=== PATIENT | female | born 1940 | race Caucasian/White ===

== ENCOUNTER → 2023-10-11 | Emergency (ER) | payer OTHER ==
[~2023-10-11] MED LIST: ACETAMINOPHEN 500 MG TAB ONE; NA CHLORIDE 0.9% 500 ML ONE
[2023-10-11 13:21] LABS: Absolute Lymphocytes (CBC) 0.2 K/uL (0.7-4.9); Hematocrit 41.9 % (36.0-45.0); Lymphocytes % 2.3 % (15.3-44.8); MCV 94.1 fL (80-100); MPV 7.5 fL (7.6-11.3); Platelets 289 thou/uL (152-406); RBC Red Blood Cell Count 4.45 M/uL (3.86-4.86)
[2023-10-11 13:37] LABS: Albumin 3.5 g/dL (3.4-5.0); Bilirubin Direct 0.1 mg/dL (0-0.2); Bilirubin Indirect, Calculated 0.3 mg/dL (0.2-0.8); Bilirubin Total 0.4 mg/dL (0.2-1.0); Magnesium 2.2 mg/dL (1.6-2.4); Potassium 3.7 mEq/L (3.5-5.1); Protein, Total 7.5 g/dL (6.4-8.2); Troponin High Sensitivity 5.9 pg/mL (<58.9)
[2023-10-11 13:38] LABS: Platelet Estimate ADEQ; White Blood Cell Scan OK (OK)
[2023-10-11 13:39] LABS: Blood Morphology Comment NOT SEEN (NOT SEEN)
[2023-10-11 13:59] LABS: SARS-COV-2 RT PCR NEGATIVE (NEGATIVE)
--- NOTE | 2023-10-11 14:24 | RAD REPORT ---
EXAM DESCRIPTION: Justot Single View10/11/2023 2:00 pm CLINICAL HISTORY: CONGESTION COMPARISON: CHEST PA AND LAT 2 VIEW dated 08/19/2012 TECHNIQUE: Portable AP view of the chest. FINDINGS: The lungs are clear. No pneumothorax or effusion. The cardiomediastinal contours are unre markable. IMPRESSION: No acute cardiopulmonary process.
[2023-10-11 16:08] LABS: Specific Gravity 1.025 (1.005-1.030); Urine Bacteria None Seen /HPF (<20); Urine Bilirubin NEGATIVE (Negative); Urine Blood Negative (Negative); Urine Clarity Clear (Clear); Urine Color Yellow (Yellow); Urine Glucose NEGATIVE (Negative); Urine Mucus 3+ /HPF (None Seen); Urine Protein TRACE (Negative); Urine RBC <5 /HPF (None Seen); Urine Urobilinogen Normal (Normal); Urine pH 5.5 (5.0-7.0)
--- NOTE | 2023-10-11 16:35 | EDPHYS ---
Physician Documentation [facility] Name: Ruthann Cat Age: 82 yrs Sex: Female : 1940 Arrival Date: 10/11/2023 Time: 12:31 Bed 5 Private MD: ED Physician Nathan Lott HPI: 10/11 12:39 This 82 yrs old Female presents to ER via EMS with complaints of weakness. sb4 13:01 Patient with history of Alzheimer's presents via EMS with with concerns of sb4 weakness. states that when she woke up this morning, she was coughing up more phlegm than usual and was too weak to get out of bed. States that the last time she acted like this, she had the flu. Historical: - Allergies: 12:35 PENICILLINS; ld1 - Home Meds: 13:14 levothyroxine 75 mcg oral tablet once [Active]; amlodipine 5 mg tablet once [Active]; aa5 memantine 10 mg oral tablet 2 times per day [Active]; donepezil 10 mg oral tablet once [Active]; pravastatin 40 mg oral tablet daily [Active]; - PMHx: 12:35 Alzheimer's disease; Sleep apnea; Dementia; ld1 - Immunization history:: Adult Immunizations up to date. - Social history:: Smoking status: Patient denies any tobacco usage or history of. ROS: 13:01 Unable to obtain ROS due to baseline dementia, sb4 Exam: 13:01 Head/Face: Normocephalic, atraumatic. Eyes: Extra-ocular motions intact. Periorbital sb4 areas with no swelling, redness, or edema. ENT: Mucous membranes moist. Cardiovascular: Regular rate and rhythm with a normal S1 and S2. Respiratory: Lungs have equal breath sounds bilaterally, clear to auscultation and percussion. No rales, rhonchi or wheezes noted. No increased work of breathing, no retractions or nasal flaring. Abdomen/GI: Soft, non-tender, no distension. Skin: Warm, dry with normal turgor. Normal color with no rashes, no lesions, and no evidence of cellulitis. MS/ Extremity: Pulses equal, no cyanosis. Neurovascular intact. Full, normal range of motion. Neuro: Awake and alert, GCS 15, oriented to person, place, time, and situation. Motor strength 5/5 in all extremities. Sensory grossly intact. 13:01 Constitutional: The patient appears alert, awake, unkempt, Vital Signs: 12:35 BP 162 / 84; Pulse 84; Resp 23; Temp 98.6(O); Pulse Ox 96% on R/A; ld1 12:35 Weight 85.73 kg; Height 5 ft. 5 in. ; Pain 0/10; ld1 13:00 BP 137 / 98; Pulse 74; Resp 18 S; Pulse Ox 97% on 2 lpm NC; aa5 13:00 Pulse Ox 95% on R/A; aa5 14:00 BP 152 / 81; Pulse 78; Resp 20 S; Pulse Ox 97% on 2 lpm NC; aa5 15:09 BP 115 / 87; Pulse 86; Resp 18; Pulse Ox 99% on R/A; ld1 16:15 BP 123 / 95; Pulse 75; Resp 18 S; Temp 98(TE); Pulse Ox 98% on R/A; aa5 12:35 Body Mass Index 31.45 (85.73 kg, 165.1 cm) ld1 12:35 Pain Scale: Adult ld1 13:00 Placed on oxygen via NC per pt's family request, PA notified and aware. aa5 MDM: 12:33 Patient medically screened. sb4 13:01 Differential Diagnosis COVID, flu, UTI, dehydration. sb4 01 09:00 Data reviewed: vital signs, nurses notes, EMS record, lab test result(s), EKG, sb4 radiologic studies, and as a result, I will discharge patient. Consideration of Admission/Observation Escalation of care including admission/observation considered. Counseling: I had a detailed discussion with the patient and/or guardian regarding the historical points, exam findings, and any diagnostic results supporting the discharge/admit diagnosis, lab results, radiology results, to return to the emergency department if symptoms worsen or persist or if there are any questions or concerns that arise at home. 10/11 12:33 Order name: COVID-19/FLU A+B/RSV; Complete Time: 14:06 sb4 10/11 12:34 Order name: Basic Metabolic Panel; Complete Time: 13:37 sb4 10/11 12:34 Order name: CBC with Diff; Complete Time: 13:41 sb4 10/11 12:34 Order name: LFT's; Complete Time: 13:37 sb4 10/11 12:34 Order name: Magnesium; Complete Time: 13:37 sb4 10/11 12:34 Order name: NT PRO-BNP; Complete Time: 13:37 sb4 10/11 12:34 Order name: Troponin HS; Complete Time: 13:37 sb4 10/11 12:34 Order name: Urine W/Microscopic (UAM); Complete Time: 16:09 sb4 10/11 13:39 Order name: CBC Smear Scan; Complete Time: 13:41 EDMS 10/11 12:34 Order name: XRAY Chest (1 view); Complete Time: 14:25 sb4 10/11 12:34 Order name: EKG; Complete Time: 12:34 sb4 10/11 12:34 Order name: Cardiac monitoring; Complete Time: 12:38 sb4 10/11 12:34 Order name: EKG - Nurse/Tech; Complete Time: 13:13 sb4 10/11 12:34 Order name: IV Saline Lock; Complete Time: 13:13 sb4 10/11 12:34 Order name: Labs collected and sent; Complete Time: 13:13 sb4 10/11 12:34 Order name: O2 Per Protocol; Complete Time: 12:38 sb4 10/11 12:34 Order name: O2 Sat Monitoring; Complete Time: 12:38 sb10/11 15:50 Order name: Straight Cath - Urine; Complete Time: 15:50 aa5 10/11 16:11 Order name: Misc. Order: ambulate; Complete Time: 16:57 sb4 EC/20 13:13 Rate is 84 beats/min. Rhythm is regular, Sinus Rhythm with Occasional PVCs. ND interval sb4 is normal at 160 msec. QRS interval is normal at 78 msec. QT interval is normal at 380 msec. No Q waves. T waves are Normal. No ST changes noted. Clinical impression: Normal ECG. Interpreted by me. Reviewed by me. Administered Medications: 13:57 Drug: Acetaminophen PO 1000 mg PO once Route: PO; aa5 15:00 Follow up: Response: No adverse reaction aa5 13:57 Drug: NS 0.9% IV 500 ml IV at bolus once Route: IV; Rate: bolus; Site: right aa5 antecubital; 14:45 Follow up: IV Status: Completed infusion; IV Intake: 500ml aa5 Disposition: 10/12 09:00 Chart complete. sb4 Disposition Summary: 10/11/23 16:35 Discharge Ordered Notes: Location: Home sb4 Problem: new sb4 Symptoms: have improved sb4 Condition: Stable sb4 Diagnosis - Weakness sb4 Followup: sb4 - With: Darrell Gottlieb MD - When: 2 - 3 days - Reason: Recheck today's complaints, Re-evaluation by your physician Discharge Instructions: - Discharge Summary Sheet sb4 - Weakness sb4 Forms: - Medication Reconciliation Form sb4 - Thank You Letter sb4 - Antibiotic Education sb4 - Prescription Opioid Use sb4 - Patient Portal Instructions sb4 - Leadership Thank You Letter sb4 Addendum: 10/13/2023 11:21 I was immediately available for consultation during this patient's visit. I did not e c2 personally see the patient or discuss the patient with the KAY. . Signatures: Dispatcher [employer] Yue Coffey RN RN aa5 Aneta Woo RN RN ld1 Vane Cortez, PA-C PA-C sb4 Nathan Lott MD MD ec2
--- NOTE | 2023-10-11 16:35 | ER ---
Nurse's Notes [facility] Name: Ruthann Cat Age: 82 yrs Sex: Female : 1940 Arrival Date: 10/11/2023 Time: 12:31 Bed 5 Private MD: Diagnosis: Weakness Presentation: 10/11 12:37 Chief complaint: EMS states: toned out to patient home for dizziness upon waking up ld1 this morning and unable to get out of bed like usual. Pt denies pain, c/o dizziness. Coronavirus screen: At this time, the client does not indicate any symptoms associated with coronavirus-19. Ebola Screen: No symptoms or risks identified at this time. Initial Sepsis Screen: Does the patient meet any 2 criteria? No. Patient's initial sepsis screen is negative. Does the patient have a suspected source of infection? No. Patient's initial sepsis screen is negative. Risk Assessment: Do you want to hurt yourself or someone else? Patient reports no desire to harm self or others. Onset of symptoms was October 11, 2023. 12:37 Method Of Arrival: EMS: [facility] ld1 12:37 Acuity: JENNIFER 3 ld1 Triage Assessment: 12:35 General: Appears in no apparent distress. comfortable, Behavior is cooperative, ld1 anxious. Pain: Denies pain. EENT: No signs and/or symptoms were reported regarding the EENT system. Neuro: Level of Consciousness is awake, alert, confused, Oriented to person. Cardiovascular: Capillary refill < 3 seconds Patient's skin is warm and dry. Rhythm is sinus rhythm. Respiratory: Airway is patent Respiratory effort is even, unlabored. GI: Abdomen is round non-distended. : No signs and/or symptoms were reported regarding the genitourinary system. Derm: No signs and/or symptoms reported regarding the dermatologic system. Musculoskeletal: No signs and/or symptoms reported regarding the musculoskeletal system. Historical: - Allergies: 12:35 PENICILLINS; ld1 - Home Meds: 13:14 levothyroxine 75 mcg oral tablet once [Active]; amlodipine 5 mg tablet once [Active]; aa5 memantine 10 mg oral tablet 2 times per day [Active]; donepezil 10 mg oral tablet once [Active]; pravastatin 40 mg oral tablet daily [Active]; - PMHx: 12:35 Alzheimer's disease; Sleep apnea; Dementia; ld1 - Immunization history:: Adult Immunizations up to date. - Social history:: Smoking status: Patient denies any tobacco usage or history of. Screenin:17 [facility] ED Fall Risk Assessment (Adult) Confusion or Disorientation Yes (5 pts) aa5 Score/Fall Risk Level 3 or more points = High Risk Oriented to surroundings, Maintained a safe environment, Educated pt \T\ family on fall prevention, incl call for assistance when getting out of bed. Abuse screen: no signs of abuse noted. Nutritional screening: No deficits noted. Tuberculosis screening: No symptoms or risk factors identified. Assessment: 13:00 General: Appears comfortable, Behavior is calm, cooperative. Pain: Complains of pain in aa5 abdomen and frontal head Unable to use pain scale. Does not appear to understand pain scale. Neuro: Level of Consciousness is awake, obeys commands, confused, Oriented to person. Cardiovascular: Heart tones S1 S2 present Rhythm is regular. Respiratory: Airway is patent Respiratory effort is even, unlabored, Respiratory pattern is regular, symmetrical. GI: Abdomen is round Bowel sounds present X 4 quads. Abdomen is tender to palpation in left upper quadrant. : No signs and/or symptoms were reported regarding the genitourinary system. EENT: Parent/caregiver reports the patient having nasal congestion. Derm: Skin is pink, warm \T\ dry. Musculoskeletal: Range of motion: intact in all extremities. 14:00 Neuro: Level of Consciousness is awake, obeys commands, confused, Oriented to person. aa5 Respiratory: Airway is patent Respiratory effort is even, unlabored, Respiratory pattern is regular, symmetrical. Derm: Skin is pink, warm \T\ dry. 15:50 Reassessment: urine sent to lab . aa5 15:50 Neuro: Level of Consciousness is awake, obeys commands, confused, Oriented to person. aa5 Respiratory: Airway is patent Respiratory effort is even, unlabored, Respiratory pattern is regular, symmetrical. Derm: Skin is pink, warm \T\ dry. 16:57 Reassessment: Pt ambulated to restroom and back to ER room 5, pt denied any complaints, aa5 steady gait with assistance, pt's daughters reports pt normally ambulates with assistance. Provider aware. . 17:00 Neuro: Level of Consciousness is awake, obeys commands, confused, Oriented to person. aa5 Respiratory: Airway is patent Respiratory effort is even, unlabored, Respiratory pattern is regular, symmetrical. Derm: Skin is pink, warm \T\ dry. Vital Signs: 12:35 BP 162 / 84; Pulse 84; Resp 23; Temp 98.6(O); Pulse Ox 96% on R/A; ld1 12:35 Weight 85.73 kg; Height 5 ft. 5 in. ; Pain 0/10; ld1 13:00 BP 137 / 98; Pulse 74; Resp 18 S; Pulse Ox 97% on 2 lpm NC; aa5 13:00 Pulse Ox 95% on R/A; aa5 14:00 BP 152 / 81; Pulse 78; Resp 20 S; Pulse Ox 97% on 2 lpm NC; aa5 15:09 BP 115 / 87; Pulse 86; Resp 18; Pulse Ox 99% on R/A; ld1 16:15 BP 123 / 95; Pulse 75; Resp 18 S; Temp 98(TE); Pulse Ox 98% on R/A; aa5 12:35 Body Mass Index 31.45 (85.73 kg, 165.1 cm) ld1 12:35 Pain Scale: Adult ld1 13:00 Placed on oxygen via NC per pt's family request, PA notified and aware. aa5 ED Course: 12:32 Patient arrived in ED. ec2 12:32 Vane Cortez PA-C is PHCP. ec2 12:35 Arm band placed on right wrist. ld1 12:38 Triage completed. ld1 12:55 Yue Garcia, RN is Primary Nurse. aa5 13:00 Patient has correct armband on for positive identification. Placed in gown. Bed in low aa5 position. Call light in reach. Side rails up X2. Adult w/ patient. Client placed on continuous cardiac and pulse oximetry monitoring. NIBP monitoring applied. 13:10 Initial lab(s) drawn, by me, sent to lab. Inserted saline lock: 20 gauge in right aa5 antecubital area, using aseptic technique. Blood collected. 14:02 XRAY Chest (1 view) In Process Unspecified. EDMS 15:28 Nathan Lott MD is Attending Physician. sb4 15:50 Straight cath inserted, using sterile technique, 16 Fr. Specimen obtained. Patient aa5 tolerated poorly. 200mls returned. 16:35 Darrell Gottlieb MD is Referral Physician. sb4 17:00 IV discontinued, intact, bleeding controlled, No redness/swelling at site. Pressure aa5 dressing applied. 17:00 No provider procedures requiring assistance completed. aa5 Administered Medications: 13:57 Drug: Acetaminophen PO 1000 mg PO once Route: PO; aa5 15:00 Follow up: Response: No adverse reaction aa5 13:57 Drug: NS 0.9% IV 500 ml IV at bolus once Route: IV; Rate: bolus; Site: right aa5 antecubital; 14:45 Follow up: IV Status: Completed infusion; IV Intake: 500ml aa5 Medication: 17:00 VIS not applicable for this client. aa5 Intake: 14:45 IV: 500ml; Total: 500ml. aa5 Outcome: 16:35 Discharge ordered by MD. sb4 17:00 Discharged to home via wheelchair, with family, aa5 17:00 Condition: improved 17:00 Discharge instructions given to family, Instructed on discharge instructions, follow up and referral plans. Demonstrated understanding of instructions, follow-up care, 17:11 Patient left the ED. aa5 Signatures: Dispatcher [employer] Yue Coffey RN RN aa5 Aneta Woo RN RN ld1 Vane Cortez, PA-C PA-C sb4 Nathan Lott MD MD ec2 Corrections: (The following items were deleted from the chart) 18:54 16:15 BP 123 / 95; Pulse 75bpm; Resp 18bpm; Spontaneous; Pulse Ox 98% RA; aa5 aa5
[2023-10-11 20:36] VITALS: TEMP 98.6
[2023-10-11 20:50] VITALS: BP 115/87; O2SAT 99
--- NOTE | 2023-10-13 16:57 | EKG ---
Test Date: 2023-10-11 Test Time: 13:02:16 Bobbin Drier: TE MEASUREMENT RESULTS: Intervals: Rate: 84 NV: 160 QRSD: 78 QT: 380 QTc: 449 [place]: P: 72 NV: 160 QRS: 33 T: 73 INTERPRETIVE STATEMENTS: Sinus rhythm with occasional premature ventricular complexes Otherwise normal ECG Compared to ECG 08/19/2012 17:58:46 Ventricular premature complex(es) now present Electronically Signed On 10-13-23 16:52:44 BRICK POINTER by Noel Mcdaniel
== END ==
LOC: ER 12:31
DX: R53.1 Weakness (principal); R42 Dizziness and giddiness; Z11.52 Encounter for screening for COVID-19; Z88.0 Allergy status to penicillin
CPT/HCPCS: 93005; 85025; 81001; 80048; 36415; 83735; 80076; 84484; 83880; 0241U; 71045; 51702; 96360; 99285; J7040